=== PATIENT | female | born 1955 | race Caucasian/White ===

== ENCOUNTER 2018-10-19 09:30 | Inpatient (IN) ==
--- NOTE | 2018-10-08 16:19 | PAT Medication Instructions ---
Medication Instructions Date of Service October 08, 2018 Home Medications acetaminophen [Tylenol 8 Hour] 1,300 mg PO Q12H PRN aspirin [Aspir-81] 81 mg PO QAM bupropion HCl [Wellbutrin XL] 100 mg PO TID diclofenac sodium [Voltaren] 2 g TOPICAL TID PRN furosemide 20 mg PO QAM gabapentin [Neurontin] 100 mg PO BID gabapentin [Neurontin] 300 mg PO HS lorazepam [Ativan] 0.5 mg PO UD PRN losartan 25 mg PO QAM metformin 500 mg PO TID metoprolol succinate 25 mg PO QAM multivitamin 1 tab PO QAM naproxen sodium [Aleve] 220 mg PO QPM PRN oxycodone 10 mg PO QID PRN polyethylene glycol 3350 [Miralax] 17 g PO DAILY PRN ranitidine HCl [Zantac] 150 mg PO BID turmeric 400 mg PO QAM ASK your surgeon for instructions diclofenac sodium [Voltaren] 2 g TOPICAL TID PRN naproxen sodium [Aleve] 220 mg PO QPM PRN STOP taking 2 weeks before surgery turmeric 400 mg PO QAM DO NOT take the morning of surgery furosemide 20 mg PO QAM losartan 25 mg PO QAM metformin 500 mg PO TID multivitamin 1 tab PO QAM polyethylene glycol 3350 [Miralax] 17 g PO DAILY PRN Take morning of surgery With a small sip of water, OTHERWISE NOTHING TO EAT OR DRINK AFTER MIDNIGHT: acetaminophen [Tylenol 8 Hour] 1,300 mg PO Q12H PRN (if needed, may be taken up to four hours before surgery) aspirin [Aspir-81] 81 mg PO QAM bupropion HCl [Wellbutrin XL] 100 mg PO TID gabapentin [Neurontin] 100 mg PO BID lorazepam [Ativan] 0.5 mg PO UD PRN (if needed) metoprolol succinate 25 mg PO QAM oxycodone 10 mg PO QID PRN (if needed, may be taken up to four hours before surgery) ranitidine HCl [Zantac] 150 mg PO BID Take evening before surgery acetaminophen [Tylenol 8 Hour] 1,300 mg PO Q12H PRN (if needed) bupropion HCl [Wellbutrin XL] 100 mg PO TID gabapentin [Neurontin] 100 mg PO BID gabapentin [Neurontin] 300 mg PO HS lorazepam [Ativan] 0.5 mg PO UD PRN metformin 500 mg PO TID oxycodone 10 mg PO QID PRN (if needed) polyethylene glycol 3350 [Miralax] 17 g PO DAILY PRN (if needed) ranitidine HCl [Zantac] 150 mg PO BID Other Notes If you have any questions please call us at [phone] or [phone] or [phone] or [phone]
--- NOTE | 2018-10-09 09:30 | Anesthesiology Consultation ---
Date of Service October 09, 2018 Assessment & Plan (1) Encounter for pre-operative examination: CHECK BSG AM DOS Chart Review Chart Review: Acceptable Risk for Surgery and Patient seen in Pre Admission Testing Teaching & Discussion Instructed NPO after midnight before surgery, except medications with 15 cc of water. Medication instructions provided according to the PAT guidelines. History Surgery Operation Date: 10/19/18 12:05 Proposed Procedures p Right Anterior Total Hip Arthroplasty - Rosendo Solomon DO Height/Weight Height: 5 ft 7 in Weight: 103.3 kg Allergies Allergy/AdvReac Type Severity Reaction Status Date / Time No Known Allergies Allergy Verified 10/05/18 14:21 Medications Home Medications Medication Instructions Recorded Confirmed Last Taken acetaminophen [Tylenol 8 Hour] 1,300 mg PO Q12H PRN 10/05/18 10/05/18 Unknown aspirin [Aspir-81] 81 mg PO QAM 10/05/18 10/05/18 Unknown bupropion HCl [Wellbutrin XL] 100 mg PO TID 10/05/18 10/05/18 Unknown diclofenac sodium [Voltaren] 2 g TOPICAL TID PRN 10/05/18 10/05/18 Unknown furosemide 20 mg PO QAM 10/05/18 10/05/18 Unknown gabapentin [Neurontin] 100 mg PO BID 10/05/18 10/05/18 Unknown gabapentin [Neurontin] 300 mg PO HS 10/05/18 10/05/18 Unknown lorazepam [Ativan] 0.5 mg PO UD PRN 10/05/18 10/05/18 Unknown losartan 25 mg PO QAM 10/05/18 10/05/18 Unknown metformin 500 mg PO TID 10/05/18 10/05/18 Unknown metoprolol succinate 25 mg PO QAM 10/05/18 10/05/18 Unknown multivitamin 1 tab PO QAM 10/05/18 10/05/18 Unknown naproxen sodium [Aleve] 220 mg PO QPM PRN 10/05/18 10/05/18 Unknown oxycodone 10 mg PO QID PRN 10/05/18 10/05/18 Unknown polyethylene glycol 3350 [Miralax] 17 g PO DAILY PRN 10/05/18 10/05/18 Unknown ranitidine HCl [Zantac] 150 mg PO BID 10/05/18 10/05/18 Unknown turmeric 400 mg PO QAM 10/05/18 10/05/18 Unknown Past Medical History Medical History Anxiety Chronic back pain Degenerative disc disease Depression Diabetes mellitus, type 2 GERD (gastroesophageal reflux disease) Hypertension Obesity Osteoarthritis LIMITED ROM NECK TO LEFT Post traumatic stress disorder Thyroid nodule UNDER OBSERVATION Q 6 MONTHS Exercise / Class Metabolic Activity III < 4 Walking/Shop/Light housework (Limited by hip pain currently, using wheeled walker, could not do stairs now, but prior to severe hip pain denies S OB/CP with 1 FOS) Past Family History Family History Father Family history of reaction to anesthesia COMBATITIVE Family history of diabetes mellitus Sister Family history of diabetes mellitus Mother Family hx colonic polyps Past Surgical History Surgical History History of section SPINAL ANESTHESIA S/P epidural steroid injection Past Anesthesia History No Hx of Anesthesia Complications and No Family Hx of Anesthesia Complications GA naive. History of PONV No Hx of PONV and No Hx of Motion Sickness Social History Smoking Status: Former smoker Do You Dip or Chew Tobacco: No Smoking End Date: QUIT 08/2018 Hx Alcohol Use: No Hx Substance Use: No Review of Systems Pt denies any recent chest pain, shortness of breath, palpitations, cough, fever or URI. Physical Exam Vital Signs BP: 112/74 P: 97bpm SPO2: 96% RA T: 98.5 F R: 16 Constitutional + obese ENMT Mouth: + dentures (partial upper); no dental restorations, no chipped teeth and no loose teeth Thyromental Distance: > or= 3.5 Finger Breadths (4) Mallampati Class: II Neck normal visual inspection and + limited neck extension (mildly) Respiratory normal respiratory effort Auscultation: lungs clear to auscultation bilaterally Cardiovascular Rate/Rhythm: regular rate and regular rhythm Heart Sounds: no murmur Vessels: no carotid bruit Extremities: no edema Testing Laboratory Results 10/09/18 09:55 10/09/18 09:55 PT 9.6 Seconds (9.0-12.0) 10/09/18 09:55 INR 0.9 (0.9-1.1) 10/09/18 09:55 APTT 24.4 Seconds (21.0-31.0) 10/09/18 09:55 Blood Type A Positive 10/09/18 09:55 Antibody Screen NEGATIVE 10/09/18 09:55 Electrocardiogram Date: 10/09/18 Findings: + NSR @ (99) Chest X-Ray Date: 10/09/18 Findings: + NAD
--- NOTE | 2018-10-09 10:44 | XRay Report ---
TWO VIEW CHEST CLINICAL HISTORY: Preoperative examination. FINDINGS: PA and lateral chest radiographs are obtained. No prior studies are available for compariso n at the time of dictation. The cardiomediastinal silhouette is unremarkable. The lungs and pleura l spaces are clear. There is no pneumothorax. The skeletal structures are osteopenic. The bony thorax appears intact. Degenerative change is seen throughout the thoracic spine. IMPRESSION: No active disease in the chest. Electronically signed by: Ino Brandt M.D. 10/09/2018 10:43 AM
[2018-10-09 10:55] LABS: Basophils # (auto) 0.01 K/uL (0-0.2); Basophils % (auto) 0.2 %; Eosinophils # (auto) 0.06 K/uL (0-0.5); Hematocrit (blood only) 36.3 % (37-47); Immature Granulocytes # (auto) 0.01 K/uL (0.00-0.02); Immature Granulocytes % (auto) 0.2 %; Lymphocytes # (auto) 2.83 K/uL (1.2-3.4); Lymphocytes % (auto) 44.8 %; Mean Corpuscular Hgb Conc 33.1 g/dL (32-36); Mean Corpuscular Volume 97.3 fL (80-100); Mean Platelet Volume 9.9 fL (7.4-10.4); Monocytes # (auto) 0.52 K/uL (0.11-0.59); Monocytes % (auto) 8.2 %; Neutrophils # (auto) 2.88 K/uL (1.4-6.5); Neutrophils % (auto) 45.6 %; Platelet Count 368 K/uL (130-400); RDW Coefficient of Variation 12.6 % (11.5-14.5); RDW Standard Deviation 44.6 fL (36.4-46.3); Red Blood Count 3.73 M/uL (4.2-5.4); White Blood Count 6.31 K/uL (4.8-10.8)
[2018-10-09 11:02] LABS: BUN Creatinine Ratio 13.9 (10-20); Calcium 9.8 mg/dl (8.5-10.1); Est GFR (African American) 70.4; Est GFR (Non-African American) 60.8; Potassium 4.4 mmol/L (3.5-5.1)
[2018-10-09 11:05] LABS: INR 0.9 (0.9-1.1); Partial Thromboplastin Ratio 0.9; Partial Thromboplastin Time 24.4 Seconds (21.0-31.0); Prothrombin Time 9.6 Seconds (9.0-12.0)
--- NOTE | 2018-10-18 16:37 | History & Physical Report ---
Date of Service October 18, 2018 Assessment & Plan (1) Osteoarthritis of right hip: We will proceed with a right anterior total hip arthroplasty. Postoperatively she will be started on aspirin for DVT prophylaxis. She will stay overnight at the hospital for postoperative medical management. She plans to use energy physical therapy upon discharge. Present on Admission?: Yes History of Present Illness Chief Complaint: Primary osteoarthritis of the right hip Primary Care Provider: Leydi Alford Tyler Woodward is a pleasant 63-year-old female who is been complaining of chronic increasing right hip and groin pain. X-rays and clinical examination have been diagnostic for primary osteoarthritis of the right hip. After failing conservative treatment, she has elected to proceed with a right anterior total hip arthroplasty. Allergies Allergy/AdvReac Type Severity Reaction Status Date / Time No Known Allergies Allergy Verified 10/05/18 14:21 Home Medications Home Medications Medication Instructions Recorded Confirmed Type acetaminophen [Tylenol 8 Hour] 1,300 mg PO Q12H PRN 10/05/18 10/05/18 History aspirin [Aspir-81] 81 mg PO QAM 10/05/18 10/05/18 History bupropion HCl [Wellbutrin XL] 100 mg PO TID 10/05/18 10/05/18 History diclofenac sodium [Voltaren] 2 g TOPICAL TID PRN 10/05/18 10/05/18 History furosemide 20 mg PO QAM 10/05/18 10/05/18 History gabapentin [Neurontin] 100 mg PO BID 10/05/18 10/05/18 History gabapentin [Neurontin] 300 mg PO HS 10/05/18 10/05/18 History lorazepam [Ativan] 0.5 mg PO UD PRN 10/05/18 10/05/18 History losartan 25 mg PO QAM 10/05/18 10/05/18 History metformin 500 mg PO TID 10/05/18 10/05/18 History metoprolol succinate 25 mg PO QAM 10/05/18 10/05/18 History multivitamin 1 tab PO QAM 10/05/18 10/05/18 History naproxen sodium [Aleve] 220 mg PO QPM PRN 10/05/18 10/05/18 History oxycodone 10 mg PO QID PRN 10/05/18 10/05/18 History polyethylene glycol 3350 [Miralax] 17 g PO DAILY PRN 10/05/18 10/05/18 History ranitidine HCl [Zantac] 150 mg PO BID 10/05/18 10/05/18 History turmeric 400 mg PO QAM 10/05/18 10/05/18 History Past Med/Surg History Medical History Anxiety Chronic back pain Degenerative disc disease Depression Diabetes mellitus, type 2 GERD (gastroesophageal reflux disease) Hypertension Obesity Osteoarthritis LIMITED ROM NECK TO LEFT Post traumatic stress disorder Thyroid nodule UNDER OBSERVATION Q 6 MONTHS Surgical History History of section SPINAL ANESTHESIA S/P epidural steroid injection Family History Father Family history of reaction to anesthesia COMBATITIVE Family history of diabetes mellitus Sister Family history of diabetes mellitus Mother Family hx colonic polyps Social History Preferred Language: Yakut Communication Ability: Effective Dice Person Required: No Beliefs That Will Affect Care: None Current Living Situation: Alone Other Information That Helps Us Care for You: No Feels Safe at Home: Yes Safety Concerns: Feels Safe At This Time Smoking Status: Former smoker Do You Dip or Chew Tobacco: No ; Smoking End Date: QUIT 08/2018 ; Second Hand Exposure: Yes (ON OCC) ; Hx Alcohol Use: No Hx Substance Use: No Review of Systems All systems reviewed & are unremarkable except as noted in HPI & below Physical Exam Constitutional: WD/WN, vitals as above Eyes: PERRL, conjunctivae normal, anicteric sclerae ENMT: external ear and nose normal, oropharynx normal Neck: trachea midline, no thyromegaly Respiratory: normal respiratory effort Cardiovascular: RRR, no murmur, no edema Gastrointestinal (Abdomen): normal bowel sounds, soft, nontender, no hepatosplenomegaly Musculoskeletal: Physical examination of the right hip reveals decreased range of motion with flexion, internal and external rotation. There is significant groin pain with forced internal rotation of the hip his leg lengths are essentially equal. Psychiatric: A+Ox3, euthymic affect Results & Data Diagnostic Findings Radiographs of the right hip and pelvis demonstrate advanced osteoarthritis with joint space narrowing osteophyte formation and [id number] articulation.
[~2018-10-19 09:30] MED LIST: ACETAMINOPHEN 500 MG TAB PO SCH; BUPIVACAINE 0.5 % 5 MG/1 ML PF 10ML VIAL ONE; CEFAZOLIN 2000MG 2,000 MG/15 ML SYR IV SCH; FAMOTIDINE 20 MG TAB PO SCH; GABAPENTIN 600 MG DOSE PO SCH; LR 500ML BOLUS, THEN 15ML/HR IV SCH; LR 60ML/HR IV SCH; ROPIVACAINE 0.5% HCL/PF 150 MG, BUPIVACAINE 0.5% MPF 30 ML, EPINEPHrine 30MG/30ML (OR U... INSTIL SCH; TRANEXAMIC ACID 1,000 MG **IV Intra-op IV SCH; TRANEXAMIC ACID 1,000 MG **IV Pre-op IV SCH
--- NOTE | 2018-10-19 10:23 | History & Physical Bridge Note ---
Date of Service October 19, 2018 History & Physical Bridge Note I have examined the patient, reviewed the History & Physical and in the interval since the performance of the History & Physical I have noted the following changes of clinical significance: no changes noted
[2018-10-19] MEDS ORDERED: MIDAZOLAM HCL 1 MG/ML 2ML VIAL ONE ×3 (10:26→11:58)
[2018-10-19] MEDS ORDERED: fentaNYL citrate 100 MCG/2 ML VIAL ONE ×2 (10:26→12:17)
[2018-10-19] MEDS ORDERED: LIDOCAINE HCL 2% 2 ML VIAL/AMP(20MG/ML) INFIL ONE (10:31)
[2018-10-19] MEDS ORDERED: PROPOFOL IV EMULSION 10 MG/ML 20 ML VIAL IV ONE ×4 (10:31→13:38)
[2018-10-19] MEDS ORDERED: ORTHO JOINT ANESTHETIC ONE (11:13)
[2018-10-19] MEDS ORDERED: fentaNYL citrate 100 MCG/2 ML VIAL IV PRN (12:39)
[2018-10-19] MEDS ORDERED: ATROPINE SULFATE 0.1 MG/ML 10ML SYR IV PRN (12:39)
[2018-10-19] MEDS ORDERED: ONDANSETRON INJ 2 MG/ML 2 ML VIAL IV PRN ×2 (12:39→15:17)
[2018-10-19] MEDS ORDERED: ePHEDrine sulfate 50 MG/ML AMP IV PRN (12:39)
[2018-10-19] MEDS ORDERED: PHENYLEPHRINE HCL 10 MG/ML VIAL ONE (13:27)
--- NOTE | 2018-10-19 13:39 | Operative Report ---
Post Operative Report Pre & Post Diagnosis Operation Date: 10/19/18 11:40 Pre-Op Diagnosis: RIGHT HIP DEGENERATIVE JOINT DISEASE Post-Op Diagnosis: RIGHT HIP DEGENERATIVE JOINT DISEASE Procedure Operation Date: 10/19/18 11:40 Actual Procedures p Right Anterior Total Hip Arthroplasty(Right) - Rosendo Solomon DO Surgeon Rosendo Solomon DO Medical Language Specialist Rosendo Douglas PAC Estimated Blood Loss 200 Findings Consistent with Post-Op Diagnosis Specimens Right femoral head Complications none Disposition Disposition: Recovery Room Indications Crissy is a pleasant 63-year-old female who presented my office with complaints of severe right hip pain. X-rays and clinical examination were diagnostic for primary osteoarthritis of the right hip. After failing conservative treatment, she elected proceed with a right anterior total hip arthroplasty. Description of Procedure Implants used Biomet Taperloc total hip arthroplasty system with a size 11 standard offset Taperloc stem, a 50 mm G7 cup with a 25mm screw, an E1 polyethylene liner, a 36 mm ceramic head with a +3 neck. Patient arrived at the hospital for the above procedure. They were seen in the preoperative holding area and the operative extremity was identified and signed. They were given a spinal anesthetic. They were given a preoperative antibiotic and TXA. They were taken back To the operating room and laid on the table in the supine position. The leg was brought out through a Puristst leg positioner. The hip was then prepped and draped in sterile fashion. A timeout was done and the patient in upper extremities properly identified. An anterior approach was used. Dissection was taken down through the fascia and the tensor muscle belly was retracted laterally and the rectus was retracted medially. The circumflex vessels were identified and ligated. The capsule was then incised and tagged for later repair. The femoral neck was then cut and the femoral head was removed. The acetabulum was exposed. Time was spent doing a complete circumferential labral release. Sequential reaming of the acetabulum up to a size 49 reamer was done. Final reamings were done under fluoroscopy to ensure appropriate version. A Biomet 50 mm G7 cup was then impacted into place. A single 25 mm screw was placed. The E1 polyethylene liner was then snapped into place. Surrounding soft tissues were then injected with 100 cc of an orthopedic pain control cocktail. The proximal femur was then exposed. Sequential broaching up to a size 11 broach was done. Off that broach a size 36 head with a +3 neck was trialed. The hip was reduced and fluoroscopic images showed anatomic alignment of the implants in acceptable length. The broach was removed. The final size 11 standard offset Taperloc stem was then impacted into place. A ceramic 36 mm head with a +3 neck was then impacted into place in the hip was reduced. Final fluoroscopic images showed anatomic reduction of the hip. The capsule was then closed with #1 Vicryl suture. A dilute betadyne lavage was then done for 3 minutes. The joint was then irrigated with normal saline solution. The fascia was closed with #1 PDS suture. Skin was closed with 2-0 Vicryl, allyson, and a Mago VAC dressing. The patient was then transferred to a hospital bed and taken to the post anesthesia care unit in stable condition. They tolerated the procedure well. I attest to the content of the Intraoperative Record and any orders documented therein. Any exceptions are noted below.
--- NOTE | 2018-10-19 14:19 | Fluoroscopy Report ---
FL hip RT 1V CLINICAL HISTORY: RIGHT ANTERIOR TOTAL HIP COMPARISON STUDY: None. FLUOROSCOPY TIME: 22 seconds. FINDINGS: 2 fluoroscopic spot images of the right hip demonstrate a right total hip arthroplasty. The hardware appears intact. No fracture or dislocation. IMPRESSION: Fluoroscopy provided for right total hip arthroplasty. Electronically signed by: Claude Madera M.D. 10/19/2018 2:18 PM
--- NOTE | 2018-10-19 14:34 | Anesthesiology Progress Note ---
Date of Service October 19, 2018 Anesthesia Post Procedure Vital Signs Vital Signs: Temp Pulse Pulse Resp BP BP Pulse Ox 10/19/18 14:25 91 H 13 132/78 98 10/19/18 14:15 93 H 15 122/75 99 10/19/18 14:05 93 H 19 111/75 99 10/19/18 13:59 36.2 C L 96 H 20 113/65 100 10/19/18 10:10 37 C 108 H 20 149/96 H 96 Pain Intensity Right Hip: Pain Intensity: 3 Transfer of Care Handoff Completed per policy Notes Mental Status: alert / awake / arousable and participated in evaluation Nausea / Vomiting: adequately controlled Pain: adequately controlled Airway Patency, RR, SpO2: stable & adequate BP & HR: stable & adequate Hydration State: stable & adequate Neuraxial Anesthesia: was administered and sensory block is resolving Anesthetic Complications: no major complications apparent and Pt Satisfied with anesthetic care
--- NOTE | 2018-10-19 14:40 | XRay Report ---
XR hip 1V RT w pelvis CLINICAL HISTORY: 63 years-old Female presenting with status post right hip arthroplasty. TECHNIQUE: Single frontal view of the pelvis and crosstable lateral view of the right hip were obtain ed. COMPARISON: 10/01/2018. FINDINGS: Postsurgical changes of total right hip arthroplasty new from prior. Redemonstration of severe degene rative changes with joint space loss at the left hip. Bony pelvis otherwise intact. No periprosthetic fracture or lucency. No malalignment. Overlying skin allyson. Soft tissue emphysema in the region of the operative bed. IMPRESSION: Expected postsurgical changes status post total right hip arthroplasty. Electronically signed by: Demetrius Woods M.D. 10/19/2018 2:38 PM
[2018-10-19] MEDS ORDERED: PHARMACY GLYCEMIC MGMT CONSULT PRN (14:49)
[2018-10-19] MEDS ORDERED: GLUCOSE 10 TABS/TUBE PO PRN (15:00)
[2018-10-19] MEDS ORDERED: CARBOHYDRATES FOR HYPOGLYCEMIA PO PRN (15:00)
[2018-10-19] MEDS ORDERED: DEXTROSE 50% 50 ML SYRINGE IV PRN (15:00)
[2018-10-19] MEDS ORDERED: GLUCAGON FOR INJ 1 MG VIAL IM PRN (15:00)
[2018-10-19] MEDS ORDERED: GLUCOSE 40% GEL 15 GM TUBE PO PRN (15:00)
[2018-10-19] MEDS ORDERED: METOCLOPRAMIDE HCL INJ 5 MG/ML 2 ML VIAL IV PRN (15:17)
[2018-10-19] MEDS ORDERED: BISACODYL 10 MG SUPP PR PRN (15:17)
[2018-10-19] MEDS ORDERED: NALOXONE HCL 0.4 MG/1 ML VIAL/CARP IV PRN (15:17)
[2018-10-19] MEDS ORDERED: HYDROmorphone INJ 0.5 MG/0.5 ML SYR IV PRN (15:17)
[2018-10-19] MEDS ORDERED: MAGNESIUM HYDROXIDE SUSP 30 ML UDC PO PRN (15:17)
--- NOTE | 2018-10-19 15:17 | Pharmacy Report ---
Glycemic Control Consultation - Date of Service October 19, 2018 - Scope Scope: Glycemic Pharmacist consulted by Rosendo Douglas on 10/19 for glycemic control and to write orders per [facility] inpatient glycemic control protocol - Objective Weight: 103.6 kg Accuchecks BSG (last 24hrs): 10/19/18 10/19/18 09:54 14:07 POC Glucose 128 H 110 H - Recent Pertinent Medications Outpatient Anti-diabetic Regimen: * metformin 500 mg tid * A1c = ordered for 8 AM Risk Factors for Insulin Resistance: * Steroids: topical dex in ortho * Recent Surgery: POD0 * Diet: T2DM - Assessment & Plan Assessment & Plan: ASSESSMENT: * 63 year old female now s/p right hip arthroplasty. PMHx significant for obesity, PTSD, GERD, htn, depression, type 2 diabetes. Managed only on metformin at home, unknown A1C * BSG postop at 110 mg/dL, patient did receive topical dexamethasone - will utilize basal/bolus dosing postop PLAN FOR INPATIENT GLYCEMIC CONTROL: * Holding outpatient oral diabetes medications * Basal insulin * Lantus HS per scale * Lantus 0 units if <160, 10 units if 160 or greater * Bolus insulin * NovoLog per scale ACHS or Q6hrs while NPO * Goal Range: Low 110 mg/dL - High 140 mg/dL * Correction Factor: 25 mg/dL/unit * Nutritional / Prandial insulin per carb ratio of 1 unit per 8 grams CHO consumed * Please note that the plan above was derived based on current level of insulin resistance and hospital stress. These recommendations are appropriate for inpatient admission only. Plan of care upon discharge will need to be reassessed to avoid potential outpatient hypo/hyperglycemia. Thank you.
[2018-10-19] MEDS: KETOROLAC 30 MG/ML VIAL IV SCH ×2 (16:11→22:08)
[2018-10-19] MEDS: ACETAMINOPHEN 500 MG TAB PO SCH ×2 (16:12→22:08)
[2018-10-19] MEDS: buPROPion HCl 100 MG TABLET PO SCH ×2 (16:12→20:52)
[2018-10-19] MEDS: SODIUM CHLORIDE 0.9% 1000ML 1,000 ML IV SCH (16:18)
[2018-10-19] MEDS: GABAPENTIN 100 MG CAP PO SCH (17:41)
[2018-10-19] MEDS: INSULIN ASPART 100 UNITS/ML 3 ML PEN SC SCH ×2 (17:42→21:58)
[2018-10-19] MEDS: SENNA 8.6 MG TAB PO SCH (20:52)
[2018-10-19] MEDS: OXYCODONE HCL IR 5 MG TAB (IMMEDIATE RELEASE) PO PRN (20:52)
[2018-10-19] MEDS: DOCUSATE SODIUM 100 MG CAP PO SCH (20:52)
[2018-10-19] MEDS: GABAPENTIN 300 MG CAP PO SCH (20:52)
[2018-10-19] MEDS: ASPIRIN 81 MG ECTAB PO SCH (20:52)
[2018-10-19] MEDS: CEFAZOLIN 2000MG 2,000 MG/15 ML SYR IV SCH (20:56)
[2018-10-19] MEDS ORDERED: LANTUS PER UNIT CHARGE SQ SCH (21:00)
[2018-10-19] MEDS ORDERED: METFORMIN HCL 500 MG TAB PO SCH (21:00)
[2018-10-19] MEDS ORDERED: GABAPENTIN 100 MG CAP PO SCH (21:00)
[2018-10-20] MEDS ORDERED: INSULIN ASPART 100 UNITS/ML 3 ML PEN SC SCH
[2018-10-20] MEDS: SODIUM CHLORIDE 0.9% 1000ML 1,000 ML IV SCH (03:15)
[2018-10-20] MEDS: CEFAZOLIN 2000MG 2,000 MG/15 ML SYR IV SCH (04:56)
[2018-10-20] MEDS: KETOROLAC 30 MG/ML VIAL IV SCH ×4 (04:56→20:51)
[2018-10-20] MEDS: ACETAMINOPHEN 500 MG TAB PO SCH ×3 (05:33→20:51)
[2018-10-20 06:23] LABS: Hematocrit (blood only) 29.1 % (37-47); Hemoglobin 9.7 g/dL (12.0-16.0); Immature Granulocytes # (auto) 0.01 K/uL (0.00-0.02); Immature Granulocytes % (auto) 0.1 %; Lymphocytes # (auto) 1.48 K/uL (1.2-3.4); Lymphocytes % (auto) 15.9 %; Mean Corpuscular Hgb Conc 33.3 g/dL (32-36); Mean Corpuscular Volume 95.4 fL (80-100); Mean Platelet Volume 9.4 fL (7.4-10.4); Monocytes % (auto) 8.6 %; Neutrophils # (auto) 6.99 K/uL (1.4-6.5); Neutrophils % (auto) 75.4 %; Platelet Count 256 K/uL (130-400); RDW Coefficient of Variation 12.6 % (11.5-14.5); RDW Standard Deviation 43.3 fL (36.4-46.3); Red Blood Count 3.05 M/uL (4.2-5.4); White Blood Count 9.28 K/uL (4.8-10.8)
[2018-10-20 06:55] LABS: Estimated Average Glucose 128 mg/dl; Hemoglobin A1C 6.1 % (4.5-5.6)
[2018-10-20 07:03] LABS: BUN Creatinine Ratio 13.5 (10-20); Calcium 8.6 mg/dl (8.5-10.1); Creatinine Clr Calc Pharmacy 74.6 ml/min; Est GFR (African American) 72.2; Est GFR (Non-African American) 62.3; Potassium 4.1 mmol/L (3.5-5.1)
[2018-10-20] MEDS: METFORMIN HCL 500 MG TAB PO SCH ×3 (08:46→17:38)
[2018-10-20] MEDS: OXYCODONE HCL IR 5 MG TAB (IMMEDIATE RELEASE) PO PRN ×3 (08:46→18:52)
[2018-10-20] MEDS: FUROSEMIDE 20 MG TAB PO SCH (08:47)
[2018-10-20] MEDS: MULTIVITAMIN TAB PO SCH (08:47)
[2018-10-20] MEDS: GABAPENTIN 100 MG CAP PO SCH ×2 (08:47→17:38)
[2018-10-20] MEDS: DOCUSATE SODIUM 100 MG CAP PO SCH ×2 (08:47→20:51)
[2018-10-20] MEDS: METOPROLOL SUCC 25MG EXT REL TAB PO SCH (08:48)
[2018-10-20] MEDS: INSULIN ASPART 100 UNITS/ML 3 ML PEN SC SCH ×4 (08:48→22:22)
[2018-10-20] MEDS: LOSARTAN POTASSIUM 25 MG TAB PO SCH (08:48)
[2018-10-20] MEDS: ASPIRIN 81 MG ECTAB PO SCH ×2 (08:48→20:51)
[2018-10-20] MEDS: buPROPion HCl 100 MG TABLET PO SCH ×3 (08:48→20:51)
[2018-10-20] MEDS ORDERED: MULTIVITAMIN TAB PO SCH (09:00)
--- NOTE | 2018-10-20 09:12 | Orthopedic Progress Note ---
Date of Service October 20, 2018 Assessment & Plan (1) Osteoarthritis of right hip: Overall she is doing fairly well. She is not having much pain in her right hip. She is on aspirin for DVT prophylaxis. She will be seen by physical therapy today for range of motion and ambulation exercises. We will plan to discharge her to home tomorrow. Present on Admission?: Yes Subjective Crissy was seen and examined at bedside this morning. Overall she is doing fairly well. She has some soreness in her hip but is not too bad. She is been very optimistic since her hip does feel better when she is walking on it. She has no complaints. Physical Exam Musculoskeletal: On physical examination of the right hip, the dressing is clean and dry. Her leg lengths are equal. She is active dorsiflexion and plantarflexion of her right ankle. Results & Data Vital Signs (Past 12 Hours) Vital Signs Temp Pulse Resp BP Pulse Ox 10/20/18 07:55 37.0 C 84 16 130/80 97 10/20/18 02:01 36.7 C 103 H 16 119/70 93 10/20/18 00:00 36.8 C 98 H 14 126/75 91 Laboratory Results H & H 10/09/18 10/20/18 Range/Units 09:55 05:53 Hgb 12.0 9.7 L (12.0-16.0) g/dL Hct 36.3 L 29.1 L (37-47) % Coagulation 10/09/18 Range/Units 09:55 INR 0.9 (0.9-1.1) Diagnostic Findings Postoperative x-rays of the right hip show the prosthesis to be in anatomic alignment without any evidence of fracture, dislocation, or loosening. PG Care Time/CCT Total # of Minutes Spent Total Time Spent with Patient: Total time spent is greater than 50% in coordination of care (as documented) at patient's floor/unit and/or counseling patient:
--- NOTE | 2018-10-20 11:01 | Pharmacy Report ---
Pharmacy Glycemic Short Note 2 - Date of Service October 20, 2018 - Glycemic Short BSG Results (Last 24 hours): 10/19/18 10/19/18 10/19/18 14:07 17:22 21:05 Glucose POC Glucose 110 H 129 H 135 H 10/19/18 10/20/18 10/20/18 23:54 05:53 08:27 Glucose 108 H POC Glucose 131 H 114 H OUTPATIENT ANTIDIABETIC REGIMEN: * metformin 500 mg tid * A1c = 6.1% on 10/20 ASSESSMENT: * 63 year old female now s/p right hip arthroplasty. PMHx significant for obesity, PTSD, GERD, htn, depression, type 2 diabetes. Managed only on metformin at home, with excellent control per A1c * Oral agents are not recommended for inpatient use d/t drug interactions, changing PO intake, and difficulty titrating for acute hyper/hypoglycemia. ADA recommends re-initiating outpatient oral agents 1-2 days prior to d ischarge if/when appropriate if they were held on admission. * Held metformin POD#0 and utilized SQ basal bolus insulin regimen which is the recommended regimen for inpatient glycemic control. * Will initiate weight based insulin dosing for insulin baldemar patient and titrate based on BSG trends. * basal insulin was not needed as BSG never >160 mg/dl * Pt tolerating PO, Scr WNL. Anticipate DC in the next 24hr. Will stop insulin and resume outpatient regimen in prep for dc PLAN FOR INPATIENT GLYCEMIC CONTROL: * Resume oral diabetes medications * metformin 500mg PO TIDM * Basal insulin * Not needed * Bolus insulin * NovoLog per scale ACHS or Q6hrs while NPO * Goal Range: Low 110 mg/dL - High 140 mg/dL * Correction Factor: 30 mg/dL/unit * Nutritional / Prandial insulin per carb ratio of 1 unit per -- grams CHO consumed PLAN FOR DISCHARGE: * Resume metformin. no changes needed based on A1c
[2018-10-20] MEDS: GABAPENTIN 300 MG CAP PO SCH (20:51)
[2018-10-20] MEDS: SENNA 8.6 MG TAB PO SCH (20:51)
[2018-10-21] MEDS: KETOROLAC 30 MG/ML VIAL IV SCH ×2 (04:02→10:46)
[2018-10-21] MEDS: ACETAMINOPHEN 500 MG TAB PO SCH (06:08)
--- NOTE | 2018-10-21 07:18 | Orthopedic Progress Note ---
Date of Service October 21, 2018 Assessment & Plan (1) Osteoarthritis of right hip: Overall she is doing very well. She not having too much pain in the right hip. She was able to ambulate well yesterday with physical therapy. She will be seen by physical therapy again this morning. She can be discharged home later today. She will get energy physical therapy at home. She will follow-up with orthopedics in 2 weeks. Present on Admission?: Yes Yamileth Woodward was seen and examined at bedside this morning. Overall she is doing fairly well. She is not having too much pain in the right hip. She is able to ambulate well yesterday with physical therapy. She has no complaints. Physical Exam Musculoskeletal: On physical examination of the right hip, the Mago VAC dressings to suction. Her leg lengths are equal. She is neurovascularly intact. Results & Data Vital Signs (Past 12 Hours) Vital Signs Temp Pulse Resp BP Pulse Ox 10/21/18 06:34 36.7 C 88 16 144/73 H 95 10/20/18 23:37 36.8 C 100 H 16 128/77 94 PG Care Time/CCT Total # of Minutes Spent Total Time Spent with Patient: Total time spent is greater than 50% in coordination of care (as documented) at patient's floor/unit and/or counseling patient:
--- NOTE | 2018-10-21 07:19 | Discharge Summary ---
Date of Service October 21, 2018 Admission HPI Per Admitting Provider Crissy is a pleasant 63-year-old female who is been complaining of chronic increasing right hip and groin pain. X-rays and clinical examination have been diagnostic for primary osteoarthritis of the right hip. After failing conservative treatment, she has elected to proceed with a right anterior total hip arthroplasty. Principal Diagnosis Right total hip arthroplasty Discharge Data Allergies Allergy/AdvReac Type Severity Reaction Status Date / Time No Known Allergies Allergy Verified 10/19/18 10:04 Consultations 10/20/18 08:00 Consult Case Management - Discharge Planning Routine Procedures Performed Operation Date: 10/19/18 11:40 Actual Procedures p Right Anterior Total Hip Arthroplasty(Right) - Rosendo Solomon DO Ordered Studies 10/19/18 11:40 FL fluoroscopy <1hr Routine FL hip RT 1V Routine Hospital Course (1) Osteoarthritis of right hip: On October 19, 2018 Crissy arrived at [facility] and underwent a right anterior total hip arthroplasty without complication. She had a spinal anesthetic. Postoperatively she was started on aspirin for DVT prophylaxis and discharged to general orthopedic floors. Her hospital course was uneventful. On postop day #1 her H&H was stable and her pain was well controlled. She was able to ambulate well with physical therapy. On postop day #2 she continued to do well. She was seen again by therapy. She was then discharged home. She will get [facility] at home. She will follow-up with orthopedics in 2 weeks. Total Time Total Time Spent Total Time Spent (In Minutes): 20 Discharge Plan Discharge Items Patient Disposition: Home - Home Health Services Reason For Visit: RIGHT HIP DEGENERATIVE JOINT DISEASE Discharge Diagnosis: Right total hip arthroplasty Discharge Goals: Decrease discomfort and Improve function Activity: Per 'Additional Instructions' section Non-emergency contact: Surgeon Call non-emergency contact if: your wound has increased redness and your wound has increased drainage Follow-up/Referrals: Leydi Scott CRNP [Primary Care Provider] - Diet: Carb Consistent or DM2 Addtl Provider Instructions: Activity and Therapy Recommendations: * If you are using [facility] then therapy will be provided at your home until they feel you have accomplished all of your goals. * If you are using [facility] then Physical Therapy will be provided until they feel you are ready to start Outpatient Physical Therapy. * If you are not using home therapy then Outpatient Physical Therapy should start about 3-5 days from your day of surgery. Therapy will last about 6-10 weeks * You were shown a series of exercises in the hospital. Do these exercises three times each day including the exercises you were shown in physical therapy. * Get up and walk several times each day.~ For the first four weeks, try not to stand or walk for more than one hour at a time. If you do stand or walk for more than one hour, you will not hurt anything, but your leg will likely swell.~~ * As you feel comfortable, you may change from the walker or crutches to a cane and~then to independent walking. Medications: * Narcotic You will likely be sent home from the hospital with a prescription for the narcotic pain medication that worked best throughout your stay. * Aspirin Most patients will be required to take Aspirin 81mg twice a day for 6 weeks after surgery. This is obtained [id number] and a prescription is not necessary. * Other medications may be prescribed for specific circumstances. If you have any questions, please call the office at . * Resume previous home medications unless otherwise instructed TEDs/Elastic Stockings: The white elastic stockings help limit swelling and prevent blood clots from forming in your legs. The more you wear them, the more they work. Wear them for six weeks. Dressing Care: You will likely have a purple VAC dressing after surgery. This dressing will keep the incision dry and promote early healing. After about 7 days the batteries will wear out and the VAC will lose suction. Simply remove the dressing at that time and throw everything away, including the small suction machine. Then, you may leave the allyson open to air or cover them with a dry dressing so they do not rub on your pants. The allyson will be removed at your 2 week follow-up appointment. Showering: You may shower immediately with the purple VAC dressing. Let the shower spray hit your opposite side and slowly pat the plastic dry. Do not soak the dressing. After the dressing is removed you may shower normally with the allyson exposed. Let soapy water run over the allyson and pat them dry. Things To Watch For: * Drainage from the incision site that occurs more than one week after your surgery. * Increased redness at the incision site. * Fever above 102 degrees Fahrenheit. * Unusual chest pain or shortness of breath. * Call [facility] at with any of the above problems Follow-Up Visit: Follow-up with Dr. Solomon 2-3 weeks after your day of surgery. An appointment was probably scheduled when you signed-up for surgery in the office. If you have any questions call Office Instructions: More detailed instructions as well as Frequently Asked Questions were provided in a folder by our office when you signed-up for surgery. Please review these instructions when you get home. If you have any further questions or concerns, please feel free to call the office at [phone] Prescriptions: Continued metformin 500 mg Tablet 500 mg PO TID RF: 0 ranitidine HCl [Zantac] 150 mg Tablet 150 mg PO BID RF: 0 furosemide 20 mg Tablet 20 mg PO QAM RF: 0 lorazepam [Ativan] 0.5 mg Tablet 0.5 mg PO UD PRN (Reason: Anxiety) RF: 0 losartan 25 mg Tablet 25 mg PO QAM RF: 0 gabapentin [Neurontin] 300 mg Capsule 300 mg PO HS RF: 0 gabapentin [Neurontin] 100 mg Capsule 100 mg PO BID RF: 0 metoprolol succinate 25 mg Tablet Extended Release 24 Hr 25 mg PO QAM RF: 0 bupropion HCl [Wellbutrin XL] 150 mg Tablet Extended Release 24 Hr 100 mg PO TID RF: 0 acetaminophen [Tylenol 8 Hour] 650 mg Tablet Extended Release 1,300 mg PO Q12H PRN (Reason: Pain) RF: 0 oxycodone 10 mg Tablet 10 mg PO QID PRN (Reason: Pain) RF: 0 naproxen sodium [Aleve] 220 mg Capsule 220 mg PO QPM PRN (Reason: Pain) RF: 0 turmeric 400 mg Capsule 400 mg PO QAM RF: 0 diclofenac sodium [Voltaren] 1 % Gel 2 g TOPICAL TID PRN (Reason: Pain) RF: 0 multivitamin Tablet 1 tab PO QAM RF: 0 polyethylene glycol 3350 [Miralax] 17 gram Powder In Packet 17 g PO DAILY PRN (Reason: Constipation) RF: 0 Changed aspirin [Aspir-81] 81 mg Tablet,Delayed Release (Dr/Ec) 81 mg PO BID Qty: 0 RF: 0 Stand-Alone Forms: [facility] Discharge Orders: Discharge Order (Routine); Ordered 10/21/18 Ordered By: Rosendo Solomon Admission Data Admit Date/Time: 10/19/18 14:04 Attending Provider: Rosendo Solomon Admit Provider: Rosendo Solomon Primary Care Provider: Leydi Scott Service: Surgical Services
[2018-10-21] MEDS: OXYCODONE HCL IR 5 MG TAB (IMMEDIATE RELEASE) PO PRN (07:21)
[2018-10-21] MEDS: DOCUSATE SODIUM 100 MG CAP PO SCH (07:22)
[2018-10-21] MEDS: MULTIVITAMIN TAB PO SCH (07:24)
[2018-10-21] MEDS: buPROPion HCl 100 MG TABLET PO SCH (07:24)
[2018-10-21] MEDS: METOPROLOL SUCC 25MG EXT REL TAB PO SCH (07:24)
[2018-10-21] MEDS: GABAPENTIN 100 MG CAP PO SCH (07:25)
[2018-10-21] MEDS: METFORMIN HCL 500 MG TAB PO SCH (07:25)
[2018-10-21] MEDS: FUROSEMIDE 20 MG TAB PO SCH (07:25)
[2018-10-21] MEDS: LOSARTAN POTASSIUM 25 MG TAB PO SCH (07:25)
[2018-10-21] MEDS: ASPIRIN 81 MG ECTAB PO SCH (07:25)
[2018-10-21] MEDS: INSULIN ASPART 100 UNITS/ML 3 ML PEN SC SCH (07:36)
== END 2018-10-21 11:17 | disposition home or self-care (01) | DRG 470 ==
LOC: ASU 09:30 → 3E 14:04

== ENCOUNTER 2019-01-18 05:56 | Inpatient (IN) ==
--- NOTE | 2018-12-05 15:06 | Anesthesiology Consultation ---
Date of Service December 05, 2018 Assessment & Plan (1) Encounter for pre-operative examination: - Check BSG AM DOS Chart Review Chart Review: Pending: Refer to Additional Notes / Consult section (pending preop testing (labs)) and Patient seen in Pre Admission Testing Teaching & Discussion Pre-Anesthesia Teaching/Discussion Notes: Instructed NPO after midnight before surgery,except medications with 15 cc of water. Medication instructions provided according to the PAT guidelines. History Surgery Operation Date: 01/25/19 12:30 Proposed Procedures p Left Anterior Total Hip Arthroplasty - Rosendo Solomon DO Height/Weight Height: 5 ft 7 in Weight: 104.4 kg Allergies Allergy/AdvReac Type Severity Reaction Status Date / Time No Known Allergies Allergy Verified 11/30/18 11:06 Medications Home Medications Medication Instructions Recorded Confirmed Last Taken acetaminophen [Tylenol 8 Hour] 1,300 mg PO Q12H PRN 10/05/18 11/30/18 10/19/18 04:00 bupropion HCl [Wellbutrin XL] 100 mg PO TID 10/05/18 11/30/18 10/19/18 08:00 diclofenac sodium [Voltaren] 2 g TOPICAL TID PRN 10/05/18 11/30/18 3 Weeks Ago ~09/28/18 furosemide 20 mg PO QAM 10/05/18 11/30/18 10/18/18 09:00 gabapentin [Neurontin] 100 mg PO BID 10/05/18 11/30/18 10/19/18 05:00 gabapentin [Neurontin] 300 mg PO HS 10/05/18 11/30/18 10/18/18 19:00 lorazepam [Ativan] 0.5 mg PO UD PRN 10/05/18 11/30/18 10/19/18 08:00 losartan 25 mg PO QAM 10/05/18 11/30/18 10/18/18 09:00 metformin 500 mg PO TID 10/05/18 11/30/18 10/18/18 12:00 metoprolol succinate 25 mg PO QAM 10/05/18 11/30/18 10/19/18 08:00 multivitamin 1 tab PO QAM 10/05/18 11/30/18 10/18/18 09:00 oxycodone 10 mg PO QID PRN 10/05/18 11/30/1810/19/19 05:00 polyethylene glycol 3350 [Miralax] 17 g PO DAILY PRN 10/05/18 11/30/18 1 Month Ago ~09/18/18 ranitidine HCl [Zantac] 150 mg PO BID 10/05/18 11/30/18 10/19/18 08:00 aspirin [Aspir-81] 81 mg PO QAM 11/30/18 11/30/18 Unknown Past Medical History Medical History Anxiety Chronic back pain Degenerative disc disease Depression Diabetes mellitus, type 2 NIDDM Fibromyalgia GERD (gastroesophageal reflux disease) controlled Hx of basal cell carcinoma Hypertension Neuropathy legs, feet, hands; 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 Obesity Osteoarthritis Post traumatic stress disorder Thyroid nodule under surveillance Exercise / Class Metabolic Activity III < 4 Walking/Shop/Light housework (walker PRN) Past Family History Family History Father Family history of reaction to anesthesia COMBATITIVE Family history of diabetes mellitus Sister Family history of diabetes mellitus Mother Family hx colonic polyps Past Surgical History Surgical History History of section SPINAL ANESTHESIA History of total replacement of right hip Right GISELLE: 10/19/18: SAB x 1 at L3 at [facility] Hx of oral surgery S/P epidural steroid injection Past Anesthesia History Other Patient: "Slow to wake" Father: combative with anesthesia History of PONV No Hx of PONV and No Hx of Motion Sickness Social History Smoking Status: Former smoker Do You Dip or Chew Tobacco: No Smoking End Date: Quit 08/2018 Hx Alcohol Use: No Hx Substance Use: No Review of Systems Patient denies chest pain, shortness of breath, cough, wheezing, palpitations. Physical Exam Vital Signs VITALS BP 110/74 P 86 TEMP 98.6 SP02 94%RA RESP 16 PHYSICAL Mildly decreased cervical extension Full TMJ range of motion. TMD 4 finger breaths Mallampati Score 2 Dentition: upper partial, missing lower molars Lungs: clear throughout to auscultation Cardiac: regular rate and rhythm, no murmurs noted Spine: normal Carotid arteries: negative bruit Extremities: no edema Testing Electrocardiogram Date: 10/09/18 + NSR @ (99) Chest X-Ray Date: 10/09/18 Findings: + NAD
--- NOTE | 2018-12-05 15:10 | PAT Medication Instructions ---
Medication Instructions Date of Service December 05, 2018 Home Medications acetaminophen [Tylenol 8 Hour] 1,300 mg PO Q12H PRN bupropion HCl [Wellbutrin XL] 100 mg PO TID diclofenac sodium [Voltaren] 2 g TOPICAL TID PRN furosemide 20 mg PO QAM gabapentin [Neurontin] 100 mg PO BID gabapentin [Neurontin] 300 mg PO HS lorazepam [Ativan] 0.5 mg PO UD PRN losartan 25 mg PO QAM metformin 500 mg PO TID metoprolol succinate 25 mg PO QAM multivitamin 1 tab PO QAM oxycodone 10 mg PO QID PRN polyethylene glycol 3350 [Miralax] 17 g PO DAILY PRN ranitidine HCl [Zantac] 150 mg PO BID aspirin [Aspir-81] 81 mg PO QAM ASK your surgeon for instructions Aleve STOP taking 24 hours before surgery diclofenac sodium [Voltaren] 2 g TOPICAL TID PRN DO NOT take the morning of surgery furosemide 20 mg PO QAM losartan 25 mg PO QAM metformin 500 mg PO TID multivitamin 1 tab PO QAM polyethylene glycol 3350 [Miralax] 17 g PO DAILY PRN ranitidine HCl [Zantac] 150 mg PO BID Take morning of surgery With a small sip of water, OTHERWISE NOTHING TO EAT OR DRINK AFTER MIDNIGHT: acetaminophen [Tylenol 8 Hour] 1,300 mg PO Q12H PRN (okay to take up to 4 hours prior to surgery if needed) bupropion HCl [Wellbutrin XL] 100 mg PO TID gabapentin [Neurontin] 100 mg PO BID lorazepam [Ativan] 0.5 mg PO UD PRN (if needed) metoprolol succinate 25 mg PO QAM oxycodone 10 mg PO QID PRN (okay to take up to 4 hours prior to surgery if neede d) aspirin [Aspir-81] 81 mg PO QAM Take evening before surgery acetaminophen [Tylenol 8 Hour] 1,300 mg PO Q12H PRN (if needed) bupropion HCl [Wellbutrin XL] 100 mg PO TID gabapentin [Neurontin] 100 mg PO BID gabapentin [Neurontin] 300 mg PO HS lorazepam [Ativan] 0.5 mg PO UD PRN (if needed) metformin 500 mg PO TID oxycodone 10 mg PO QID PRN polyethylene glycol 3350 [Miralax] 17 g PO DAILY PRN (if needed) ranitidine HCl [Zantac] 150 mg PO BID Other Notes If you have any questions please call us at [phone] or [phone] or [phone] or [phone]
[2018-12-05 15:40] LABS: Basophils # (auto) 0.01 K/uL (0-0.2); Basophils % (auto) 0.2 %; Eosinophils # (auto) 0.07 K/uL (0-0.5); Eosinophils % (auto) 1.2 %; Hematocrit (blood only) 36.7 % (37-47); Immature Granulocytes # (auto) 0.01 K/uL (0.00-0.02); Immature Granulocytes % (auto) 0.2 %; Lymphocytes # (auto) 2.53 K/uL (1.2-3.4); Lymphocytes % (auto) 42.6 %; Mean Corpuscular Hemoglobin 31.3 pg (25-34); Mean Corpuscular Hgb Conc 32.7 g/dL (32-36); Mean Corpuscular Volume 95.8 fL (80-100); Mean Platelet Volume 9.5 fL (7.4-10.4); Monocytes # (auto) 0.58 K/uL (0.11-0.59); Monocytes % (auto) 9.8 %; Neutrophils # (auto) 2.74 K/uL (1.4-6.5); Platelet Count 379 K/uL (130-400); RDW Coefficient of Variation 12.9 % (11.5-14.5); RDW Standard Deviation 44.9 fL (36.4-46.3); Red Blood Count 3.83 M/uL (4.2-5.4); White Blood Count 5.94 K/uL (4.8-10.8)
[2018-12-05 15:51] LABS: BUN Creatinine Ratio 17.4 (10-20); Calcium 9.3 mg/dl (8.5-10.1); Creatinine Clr Calc Pharmacy 73.4 ml/min; Est GFR (African American) 70.4; Est GFR (Non-African American) 60.8
[2018-12-05 15:54] LABS: Partial Thromboplastin Ratio 0.9; Partial Thromboplastin Time 24.1 Seconds (21.0-31.0); Prothrombin Time 9.8 Seconds (9.0-12.0)
--- NOTE | 2019-01-17 14:45 | History & Physical Report ---
Date of Service January 17, 2019 Assessment & Plan (1) Osteoarthritis of left hip: We will proceed with a left anterior total hip arthroplasty. Postoperatively she will be started on aspirin for DVT prophylaxis and kept overnight for postoperative medical management. She plans to use [facility] upon discharge. Present on Admission?: Yes History of Present Illness Chief Complaint: Primary osteoarthritis of the left hip Primary Care Provider: Leydi KhangTrenton Tyler Woodward is a pleasant 63-year-old female who underwent a right anterior total hip arthroplasty about 3 months ago. She is done extremely well with that. Unfortunately she is having a lot of pain in her left hip. X-rays and clinical examination have been diagnostic for primary osteoarthritis of the left hip. After failing conservative treatment, she has elected to proceed with a left anterior total hip arthroplasty. Allergies Allergy/AdvReac Type Severity Reaction Status Date / Time No Known Allergies Allergy Verified 11/30/18 11:06 Home Medications Home Medications Medication Instructions Recorded Confirmed Type acetaminophen [Tylenol 8 Hour] 1,300 mg PO Q12H PRN 10/05/18 11/30/18 History bupropion HCl [Wellbutrin XL] 100 mg PO TID 10/05/18 11/30/18 History diclofenac sodium [Voltaren] 2 g TOPICAL TID PRN 10/05/18 11/30/18 History furosemide 20 mg PO QAM 10/05/18 11/30/18 History gabapentin [Neurontin] 100 mg PO BID 10/05/18 11/30/18 History gabapentin [Neurontin] 300 mg PO HS 10/05/18 11/30/18 History lorazepam [Ativan] 0.5 mg PO UD PRN 10/05/18 11/30/18 History losartan 25 mg PO QAM 10/05/18 11/30/18 History metformin 500 mg PO TID 10/05/18 11/30/18 History metoprolol succinate 25 mg PO QAM 10/05/18 11/30/18 History multivitamin 1 tab PO QAM 10/05/18 11/30/18 History oxycodone 10 mg PO QID PRN 10/05/18 11/30/18 History polyethylene glycol 3350 [Miralax] 17 g PO DAILY PRN 10/05/18 11/30/18 History ranitidine HCl [Zantac] 150 mg PO BID 10/05/18 11/30/18 History aspirin [Aspir-81] 81 mg PO QAM 11/30/18 11/30/18 History Past Med/Surg History Medical History (Updated 01/17/19 @ 14:45 by Rosendo Solomon DO) Anxiety Chronic back pain Degenerative disc disease Depression Diabetes mellitus, type 2 NIDDM Fibromyalgia GERD (gastroesophageal reflux disease) controlled Hx of basal cell carcinoma Hypertension Neuropathy legs, feet, hands; 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 Obesity Osteoarthritis Post traumatic stress disorder Thyroid nodule under surveillance Surgical History (Updated 12/05/18 @ 15:19 by Reyna Clark) History of section SPINAL ANESTHESIA History of total replacement of right hip Right GISELLE: 10/19/18: SAB x 1 at L3 at [facility] Hx of oral surgery S/P epidural steroid injection Family History Father Family history of reaction to anesthesia COMBATITIVE Family history of diabetes mellitus Sister Family history of diabetes mellitus Mother Family hx colonic polyps Social History Preferred Language: Luxembourgish Communication Ability: Effective 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 Beliefs That Will Affect Care: None marital status: Single Current Living Situation: Alone Feels Safe at Home: Yes Safety Concerns: Feels Safe At This Time Smoking Status: Former smoker Do You Dip or Chew Tobacco: No ; Smoking End Date: Quit 08/2018 ; Second Hand Exposure: Yes (ON OCC) ; Hx Alcohol Use: No Hx Substance Use: No Review of Systems All systems reviewed & are unremarkable except as noted in HPI & below Physical Exam Constitutional: WD/WN, vitals as above Eyes: PERRL, conjunctivae normal, anicteric sclerae ENMT: external ear and nose normal, oropharynx normal Neck: trachea midline, no thyromegaly Respiratory: normal respiratory effort Cardiovascular: RRR, no murmur, no edema Gastrointestinal (Abdomen): normal bowel sounds, soft, nontender, no hepatosplenomegaly Musculoskeletal: Physical examination of the left hip reveals decreased range of motion with flexion, internal and external rotation. There is significant groin pain with forced internal rotation of the hip his leg lengths are essentially equal. Psychiatric: A+Ox3, euthymic affect Results & Data Diagnostic Findings Radiographs of the left hip and pelvis demonstrate advanced osteoarthritis with joint space narrowing osteophyte formation and eyjy-cp-mall articulation.
[2019-01-18] MEDS ORDERED: ACETAMINOPHEN 500 MG TAB PO SCH (06:00)
[2019-01-18] MEDS ORDERED: LR 60ML/HR IV SCH (06:00)
[2019-01-18] MEDS ORDERED: GABAPENTIN 600 MG DOSE PO SCH (06:00)
[2019-01-18] MEDS ORDERED: FAMOTIDINE 20 MG TAB PO SCH (06:00)
[2019-01-18] MEDS ORDERED: ROPIVACAINE 0.5% HCL/PF 150 MG, BUPIVACAINE 0.5% MPF 30 ML, EPINEPHrine 30MG/30ML (OR U... INFIL SCH (06:00)
[2019-01-18] MEDS ORDERED: CEFAZOLIN 2000MG 2,000 MG/15 ML SYR IV SCH (06:00)
[2019-01-18] MEDS ORDERED: LR 500ML BOLUS, THEN 15ML/HR IV SCH (06:00)
[2019-01-18] MEDS ORDERED: TRANEXAMIC ACID 1,000 MG **IV Pre-op IV SCH (06:00)
[2019-01-18] MEDS ORDERED: TRANEXAMIC ACID 1,000 MG **IV Intra-op IV SCH (06:30)
[2019-01-18] MEDS ORDERED: BUPIVACAINE 0.5 % 5 MG/1 ML PF 10ML VIAL ONE (06:40)
--- NOTE | 2019-01-18 06:57 | History & Physical Bridge Note ---
Date of Service January 18, 2019 History & Physical Bridge Note I have examined the patient, reviewed the History & Physical and in the interval since the performance of the History & Physical I have noted the following changes of clinical significance: no changes noted
[2019-01-18] MEDS ORDERED: ORTHO JOINT ANESTHETIC ONE (07:11)
[2019-01-18] MEDS ORDERED: fentaNYL citrate 100 MCG/2 ML VIAL ONE (07:22)
[2019-01-18] MEDS ORDERED: MIDAZOLAM HCL 1 MG/ML 2ML VIAL ONE ×3 (07:22→08:18)
[2019-01-18] MEDS ORDERED: ePHEDrine sulfate 50 MG/ML AMP IV PRN (07:28)
[2019-01-18] MEDS ORDERED: fentaNYL citrate 100 MCG/2 ML VIAL IV PRN (07:28)
[2019-01-18] MEDS ORDERED: ATROPINE SULFATE 0.1 MG/ML 10ML SYR IV PRN (07:28)
[2019-01-18] MEDS ORDERED: ONDANSETRON INJ 2 MG/ML 2 ML VIAL IV PRN ×2 (07:28→10:56)
[2019-01-18] MEDS ORDERED: LIDOCAINE HCL 2% 2 ML VIAL/AMP(20MG/ML) INFIL ONE (08:30)
[2019-01-18] MEDS ORDERED: PROPOFOL IV EMULSION 10 MG/ML 20 ML VIAL IV ONE (08:30)
[2019-01-18] MEDS ORDERED: ONDANSETRON INJ 2 MG/ML 2 ML VIAL ONE (08:31)
--- NOTE | 2019-01-18 09:42 | Operative Report ---
PG Post Operative Report Pre & Post Diagnosis Operation Date: 01/18/19 08:30 Pre-Op Diagnosis: LEFT HIP DEGENERATIVE JOINT DISEASE Post-Op Diagnosis: LEFT HIP DEGENERATIVE JOINT DISEASE I identified the patient and participated in the time-out.: Yes Procedure Operation Date: 01/18/19 08:30 Actual Procedures p Left Anterior Total Hip Arthroplasty(Left) - Rosendo Solomon DO Surgeon Rosendo Solomon DO Water Plant Operator Rosendo Douglas PAC Estimated Blood Loss 250 Findings Consistent with Post-Op Diagnosis Specimens Left femoral head Complications none Disposition Disposition: Recovery Room Indications Crissy is a pleasant 63-year-old female is been dealing with chronic bilateral hip pain. I did a right anterior total hip arthroplasty on her in the past. She has done extremely well with that. She has now elected to proceed with a left anterior total hip arthroplasty. Description of Procedure Implants used Biomet Taperloc total hip arthroplasty system with a size 11 standard offset Taperloc stem, a 50 mm G7 cup with a 25mm screw, an E1 polyethylene liner, a 36 mm ceramic head with a +0 neck. Patient arrived at the hospital for the above procedure. They were seen in the preoperative holding area and the operative extremity was identified and signed. They were given a spinal anesthetic. They were given a preoperative antibiotic and TXA. They were taken back To the operating room and laid on the table in the supine position. The leg was brought out through a Puristst leg positioner. The hip was then prepped and draped in sterile fashion. A timeout was done and the patient and the operative extremity was properly identified. An anterior approach was used. Dissection was taken down through the fascia and the tensor muscle belly was retracted laterally and the rectus was retracted med ially. The circumflex vessels were identified and ligated. The capsule was then incised and tagged for later repair. The femoral neck was then cut and the femoral head was removed. The acetabulum was exposed. Time was spent doing a complete circumferential labral release. Sequential reaming of the acetabulum up to a size 49 reamer was done. Final reamings were done under fluoroscopy to ensure appropriate version. A Biomet 50 mm G7 cup was then impacted into place. A single 25 mm screw was placed. The E1 polyethylene liner was then snapped into place. Surrounding soft tissues were then injected with 100 cc of an orthopedic pain control cocktail. The proximal femur was then exposed. Sequential broaching up to a size 11 broach was done. Off that broach a size 36 head with a +0 neck was trialed. The hip was reduced and fluoroscopic images showed anatomic alignment of the implants in acceptable length. The broach was removed. The final size 11 standard offset Taperloc stem was then impacted into place. A ceramic 36 mm head with a +0 neck was then impacted into place in the hip was reduced. Final fluoroscopic images showed anatomic reduction of the hip. The capsule was then closed with #1 Vicryl suture. A dilute betadyne lavage was then done for 3 minutes. The joint was then irrigated with normal saline solution. The fascia was closed with #1 PDS suture. Skin was closed with 2-0 Vicryl, allyson, and a Mago VAC dressing. The patient was then transferred to a hospital bed and taken to the post anesthesia care unit in stable condition. They tolerated the procedure well. I attest to the content of the Intraoperative Record and any orders documented therein. Any exceptions are noted below.
[2019-01-18] MEDS ORDERED: OXYCODONE HCL IR 5 MG TAB (IMMEDIATE RELEASE) PO PRN ×2 (10:24→10:56)
--- NOTE | 2019-01-18 10:27 | XRay Report ---
XR hip 1V LT w pelvis CLINICAL HISTORY: 63 years-old Female presenting with IN PACU - A/P PELVIS and LATERAL HIP . TECHNIQUE: Single frontal view of the pelvis and crosstable lateral view of the left hip were obtaine d. COMPARISON: 10/19/2018. FINDINGS: There has been interval postsurgical changes of total left hip arthroplasty. A wound VAC and skin sta ples are in place. Expected soft tissue emphysema. No malalignment. No periprosthetic fracture. The r emainder of the bony pelvis is intact. Postsurgical changes of total right hip arthroplasty again not ed. IMPRESSION: Expected postsurgical appearance status post total left hip arthroplasty. Electronically signed by: Demetrius Woods M.D. 01/18/2019 10:25 AM
--- NOTE | 2019-01-18 10:40 | Anesthesiology Progress Note ---
Date of Service January 18, 2019 Anesthesia Post Procedure Vital Signs Vital Signs: Temp Pulse Pulse Resp BP Pulse Ox 01/18/19 10:25 97.5 F L 83 14 124/61 100 01/18/19 10:15 82 13 112/66 99 01/18/19 10:05 97.5 F L 89 12 88/61 L 99 01/18/19 06:16 97.9 F 101 H 18 151/89 H 97 Transfer of Care Handoff Completed per policy Notes Mental Status: alert / awake / arousable and participated in evaluation Patient Amnestic to Procedure: Yes Nausea / Vomiting: adequately controlled Pain: adequately controlled Airway Patency, RR, SpO2: stable & adequate BP & HR: stable & adequate Hydration State: stable & adequate Neuraxial Anesthesia: was administered and sensory block is resolving Anesthetic Complications: no major complications apparent and Pt Satisfied with anesthetic care
[2019-01-18] MEDS ORDERED: METOCLOPRAMIDE HCL INJ 5 MG/ML 2 ML VIAL IV PRN (10:56)
[2019-01-18] MEDS ORDERED: HYDROmorphone INJ 0.5 MG/0.5 ML SYR IV PRN (10:56)
[2019-01-18] MEDS ORDERED: NALOXONE HCL 0.4 MG/1 ML VIAL/CARP IV PRN (10:56)
[2019-01-18] MEDS ORDERED: MAGNESIUM HYDROXIDE SUSP 30 ML UDC PO PRN (10:56)
[2019-01-18] MEDS ORDERED: BISACODYL 10 MG SUPP PR PRN (10:56)
[2019-01-18] MEDS ORDERED: PHARMACY GLYCEMIC MGMT CONSULT PRN (11:04)
[2019-01-18] MEDS ORDERED: GLUCOSE 40% GEL 15 GM TUBE PO PRN (11:15)
[2019-01-18] MEDS ORDERED: GLUCAGON FOR INJ 1 MG VIAL IM PRN (11:15)
[2019-01-18] MEDS ORDERED: CARBOHYDRATES FOR HYPOGLYCEMIA PO PRN (11:15)
[2019-01-18] MEDS ORDERED: GLUCOSE 10 TABS/TUBE PO PRN (11:15)
[2019-01-18] MEDS ORDERED: DEXTROSE 50% 50 ML SYRINGE IV PRN (11:15)
--- NOTE | 2019-01-18 11:22 | Fluoroscopy Report ---
FL hip LT 1V HISTORY: 63 years-old Female LEFT ANTERIOR HIP left hip total joint arthroplasty COMPARISON: Pelvis radiograph 12/05/2018 TECHNIQUE: 2 spot fluoroscopic images of the left hip were obtained utilizing 21.0 seconds fluoroscop y time FINDINGS: Left hip total joint arthroplasty demonstrates satisfactory alignment. Forceps overlie the proximal t o mid left femoral shaft. No acute fracture. Expected postsurgical soft tissue swelling with deep tis wilfredo air lateral to the left hip. Right hip total joint arthroplasty partially imaged. IMPRESSION: Satisfactory positioning of the left hip total joint arthroplasty. The above report was generated using voice recognition software. It may contain grammatical, syntax o r spelling errors. Electronically signed by: Olvin Mckenzie M.D. 01/18/2019 11:21 AM
--- NOTE | 2019-01-18 11:34 | Pharmacy Report ---
Glycemic Control Consultation - Date of Service January 18, 2019 - Scope Scope: Glycemic Pharmacist consulted by Rosendo WISE on 01/18 for glycemic control and to write orders per [facility] inpatient glycemic control protocol - Objective Weight: 108 kg Accuchecks BSG (last 24hrs): 01/18/19 01/18/19 06:19 10:18 POC Glucose 123 H 97 - Recent Pertinent Medications Outpatient Anti-diabetic Regimen: * metformin 500 mg TID * A1c = 6.1 % 10/20/18 Risk Factors for Insulin Resistance: * Steroids: topical dex in ortho mix * Recent Surgery: POD 0 * Diet: T2DM - Assessment & Plan Assessment & Plan: ASSESSMENT: * 63 year old female now s/p L hip arthroplasty. Underwent right total hip arthroplasty about 3 months ago * Pharmacy consulted to provide glycemic control postop - will utilize basal/bolus dosing postop op. Utilized stress of 2 for CF/CR based upon adjusted body weight. Patient was also glycemic consult on prior admission and parameters for novolog are similar. Patient with great BSG on prior admission PLAN FOR INPATIENT GLYCEMIC CONTROL: * Pt is maintained on oral antidiabetic agents as an outpatient * Oral agents are not recommended for inpatient use d/t drug interactions, changing PO intake, and difficulty titrating for acute hyper/hypoglycemia. ADA recommends re-initiating outpatient oral agents 1-2 days prior to discharge if/when appropriate if they were held on admission. * Will hold oral agents for admission and utilize SQ basal bolus insulin regimen which is the recommended regimen for inpatient glycemic control. * Will initiate weight based insulin dosing for insulin baldemar patient and titrate based on BSG trends. * Basal insulin * Lantus HS with scale -for BSG less than 180 - no insulin -for BSG 180 or greater - 7 units * Bolus insulin * NovoLog per scale ACHS or Q6hrs while NPO * Goal Range: Low 110 mg/dL - High 140 mg/dL * Correction Factor: 30 mg/dL/unit * Nutritional / Prandial insulin per carb ratio of 1 unit per 10 grams CHO consumed * Please note that the plan above was derived based on current level of insulin resistance and hospital stress. These recommendations are appropriate for inpatient admission only. Plan of care upon discharge will need to be reassessed to avoid potential outpatient hypo/hyperglycemia. Thank you.
[2019-01-18] MEDS ORDERED: SODIUM CHLORIDE 0.9% 1000ML 1,000 ML IV SCH (12:00)
[2019-01-18] MEDS: KETOROLAC 30 MG/ML VIAL IV SCH ×3 (12:14→23:31)
[2019-01-18] MEDS: INSULIN ASPART 100 UNITS/ML 3 ML PEN SC SCH ×3 (12:59→21:50)
[2019-01-18] MEDS: ACETAMINOPHEN 500 MG TAB PO SCH ×2 (13:52→21:50)
[2019-01-18] MEDS: buPROPion HCl 100 MG TABLET PO SCH ×2 (14:20→20:03)
[2019-01-18] MEDS: CEFAZOLIN 2000MG 2,000 MG/15 ML SYR IV SCH ×2 (15:22→23:31)
[2019-01-18] MEDS: DOCUSATE SODIUM 100 MG CAP PO SCH (20:00)
[2019-01-18] MEDS: ASPIRIN 81 MG ECTAB PO SCH (20:03)
[2019-01-18] MEDS ORDERED: LANTUS PER UNIT CHARGE SQ SCH (21:00)
[2019-01-18] MEDS ORDERED: SENNA 8.6 MG TAB PO SCH (21:00)
[2019-01-18] MEDS ORDERED: GABAPENTIN 300 MG CAP PO SCH (21:00)
[2019-01-18] MEDS ORDERED: GABAPENTIN 100 MG CAP PO SCH (21:00)
[2019-01-19] MEDS: ACETAMINOPHEN 500 MG TAB PO SCH (05:18)
[2019-01-19] MEDS: KETOROLAC 30 MG/ML VIAL IV SCH ×2 (05:18→11:36)
[2019-01-19 05:47] LABS: Hematocrit (blood only) 29.7 % (37-47); Hemoglobin 9.8 g/dL (12.0-16.0); Immature Granulocytes # (auto) 0.02 K/uL (0.00-0.02); Immature Granulocytes % (auto) 0.2 %; Lymphocytes # (auto) 1.87 K/uL (1.2-3.4); Mean Corpuscular Hemoglobin 30.7 pg (25-34); Mean Corpuscular Volume 93.1 fL (80-100); Mean Platelet Volume 9.3 fL (7.4-10.4); Monocytes # (auto) 0.96 K/uL (0.11-0.59); Monocytes % (auto) 9.2 %; Neutrophils # (auto) 7.56 K/uL (1.4-6.5); Neutrophils % (auto) 72.6 %; Platelet Count 226 K/uL (130-400); RDW Coefficient of Variation 13.2 % (11.5-14.5); RDW Standard Deviation 45.2 fL (36.4-46.3); Red Blood Count 3.19 M/uL (4.2-5.4); White Blood Count 10.41 K/uL (4.8-10.8)
[2019-01-19 06:15] LABS: BUN Creatinine Ratio 15.2 (10-20); Calcium 8.7 mg/dl (8.5-10.1); Creatinine Clr Calc Pharmacy 78.7 ml/min; Est GFR (African American) 74.9; Est GFR (Non-African American) 64.6
[2019-01-19] MEDS: DOCUSATE SODIUM 100 MG CAP PO SCH (08:42)
[2019-01-19] MEDS: ASPIRIN 81 MG ECTAB PO SCH (08:45)
[2019-01-19] MEDS: buPROPion HCl 100 MG TABLET PO SCH (08:47)
[2019-01-19] MEDS: INSULIN ASPART 100 UNITS/ML 3 ML PEN SC SCH (08:53)
[2019-01-19] MEDS ORDERED: FUROSEMIDE 20 MG TAB PO SCH (09:00)
[2019-01-19] MEDS ORDERED: METOPROLOL SUCC 25MG EXT REL TAB PO SCH (09:00)
[2019-01-19] MEDS ORDERED: MULTIVITAMIN TAB PO SCH (09:00)
[2019-01-19] MEDS ORDERED: LOSARTAN POTASSIUM 25 MG TAB PO SCH (09:00)
[2019-01-19] MEDS ORDERED: GABAPENTIN 100 MG CAP PO SCH (09:00)
--- NOTE | 2019-01-19 09:25 | Orthopedic Progress Note ---
Date of Service January 19, 2019 Assessment & Plan (1) Osteoarthritis of left hip: Overall she is doing very well. She is not having much pain in the left hip. She is on aspirin for DVT prophylaxis. She will be seen by physical therapy today for ambulation and range of motion exercises. She can be discharged home later today with [facility]. She will follow-up with orthopedics in 2 weeks. Present on Admission?: Yes Yamileth Woodward was seen and examined at bedside this morning. Overall she is doing very well. She is not having much pain in the left hip. She has been up and ambulating around the room. She has no complaints. Physical Exam Musculoskeletal: On physical examination of the left hip, the Mago VAC dressing is to suction. Her leg lengths are equal. She has active dorsiflexion and plantarflexion of her left ankle. Sensation is intact throughout. Results & Data Vital Signs (Past 12 Hours) Vital Signs Temp Pulse Pulse Resp BP Pulse Ox 01/19/19 08:43 106 H 130/81 01/19/19 07:31 36.6 C 100 H 16 117/65 95 01/19/19 04:03 36.7 C 99 H 18 119/76 96 01/19/19 00:08 36.7 C 102 H 16 123/78 96 Laboratory Results H & H 12/05/18 01/19/19 Range/Units 15:15 05:14 Hgb 12.0 9.8 L (12.0-16.0) g/dL Hct 36.7 L 29.7 L (37-47) % Coagulation 12/05/18 Range/Units 15:15 INR 1.0 (0.9-1.1) Diagnostic Findings Postoperative x-rays of the left hip show the prosthesis to be in anatomic alignment without any evidence of fracture, dislocation, or loosening. PG Care Time/CCT Total # of Minutes Spent Total Time Spent with Patient: Total time spent is greater than 50% in coordination of care (as documented) at patient's floor/unit and/or counseling patient:
--- NOTE | 2019-01-19 09:26 | Discharge Summary ---
Date of Service January 19, 2019 Admission HPI Per Admitting Provider Crissy is a pleasant 63-year-old female who underwent a right anterior total hip arthroplasty about 3 months ago. She is done extremely well with that. Unfortunately she is having a lot of pain in her left hip. X-rays and clinical examination have been diagnostic for primary osteoarthritis of the left hip. After failing conservative treatment, she has elected to proceed with a left anterior total hip arthroplasty. Principal Diagnosis Left total hip arthroplasty Discharge Data Allergies Allergy/AdvReac Type Severity Reaction Status Date / Time No Known Allergies Allergy Verified 01/18/19 06:22 Consultations 01/19/19 08:00 Consult Case Management - Discharge Planning Routine Procedures Performed Operation Date: 01/18/19 08:30 Actual Procedures p Left Anterior Total Hip Arthroplasty(Left) - Rosendo Solomon DO Ordered Studies 01/18/19 08:30 FL fluoroscopy <1hr Routine FL hip LT 1V Routine Hospital Course (1) Osteoarthritis of left hip: On January 18, 2019 Crissy arrived at [facility] and underwent a left anterior total hip arthroplasty without complication. She had a spinal anesthetic. Postoperatively she was started on aspirin for DVT prophylaxis and discharged to general orthopedic floors. Her hospital course was uneventful. On postop day #1 her H&H was stable and her pain was well controlled. She was able to ambulate well with physical therapy. She was then discharged home with [facility]. She will follow-up with orthopedics in 2 weeks. Total Time Total Time Spent Total Time Spent (In Minutes): 20 Discharge Plan Discharge Items Patient Disposition: Home - Home Health Services Reason For Visit: LEFT HIP DEGENERATIVE JOINT DISEASE Discharge Diagnosis: Left total hip arthroplasty Activity: As commented below Non-emergency contact: Surgeon Call non-emergency contact if: your wound has increased redness and your wound has increased drainage Follow-up/Referrals: Leydi Scott CRNP [Primary Care Provider] - Diet: Regular Addtl Attending Provider Instructions: Activity and Therapy Recommendations: * If you are using [facility] then therapy will be provided at your home until they feel you have accomplished all of your goals. * If you are using [facility] then Physical Therapy will be provided until they feel you are ready to start Outpatient Physical Therapy. * If you are not using home therapy then Outpatient Physical Therapy should start about 3-5 days from your day of surgery. Therapy will last about 6-10 weeks * You were shown a series of exercises in the hospital. Do these exercises three times each day including the exercises you were shown in physical therapy. * Get up and walk several times each day.~ For the first four weeks, try not to stand or walk for more than one hour at a time. If you do stand or walk for more than one hour, you will not hurt anything, but your leg will likely swell.~~ * As you feel comfortable, you may change from the walker or crutches to a cane and~then to independent walking. Medications: * Narcotic You will likely be sent home from the hospital with a prescription for the narcotic pain medication that worked best throughout your stay. * Aspirin Most patients will be required to take Aspirin 81mg twice a day for 6 weeks after surgery. This is obtained [id number] and a prescription is not necessary. * Other medications may be prescribed for specific circumstances. If you have any questions, please call the office at . * Resume previous home medications unless otherwise instructed TEDs/Elastic Stockings: The white elastic stockings help limit swelling and prevent blood clots from forming in your legs. The more you wear them, the more they work. Wear them for six weeks. Dressing Care: You will likely have a purple VAC dressing after surgery. This dressing will keep the incision dry and promote early healing. After about 7 days the batteries will wear out and the VAC will lose suction. Simply remove the dressing at that time and throw everything away, including the small suction machine. Then, you may leave the allyson open to air or cover them with a dry dressing so they do not rub on your pants. The allyson will be removed at your 2 week follow-up appointment. Showering: You may shower immediately with the purple VAC dressing. Let the shower spray hit your opposite side and slowly pat the plastic dry. Do not soak the dressing. After the dressing is removed you may shower normally with the allyson exposed. Let soapy water run over the allyson and pat them dry. Things To Watch For: * Drainage from the incision site that occurs more than one week after your surgery. * Increased redness at the incision site. * Fever above 102 degrees Fahrenheit. * Unusual chest pain or shortness of breath. * Call [facility] at with any of the above problems Follow-Up Visit: Follow-up with Dr. Solomon 2-3 weeks after your day of surgery. An appointment was probably scheduled when you signed-up for surgery in the office. If you have any questions call Office Instructions: More detailed instructions as well as Frequently Asked Questions were provided in a folder by our office when you signed-up for surgery. Please review these instructions when you get home. If you have any further questions or concerns, please feel free to call the office at [phone] Pending Studies at Discharge: No Stand-Alone Forms: My [facility] [address] Think Good Thoughts, Smoking Cessation Medications and DC Order Prescriptions: New ketorolac 10 mg tablet 10 mg PO Q8H 5 Days Qty: 15 RF: 0 Continued metformin 500 mg Tablet 500 mg PO TID RF: 0 furosemide 20 mg Tablet 20 mg PO QAM RF: 0 lorazepam [Ativan] 0.5 mg Tablet 0.5 mg PO UD PRN (Reason: Anxiety) RF: 0 losartan 25 mg Tablet 25 mg PO QAM RF: 0 gabapentin [Neurontin] 300 mg Capsule 300 mg PO HS RF: 0 gabapentin [Neurontin] 100 mg Capsule 100 mg PO BID RF: 0 metoprolol succinate 25 mg Tablet Extended Release 24 Hr 25 mg PO QAM RF: 0 acetaminophen [Tylenol 8 Hour] 650 mg Tablet Extended Release 1,300 mg PO Q12H PRN (Reason: Pain) RF: 0 oxycodone 10 mg Tablet 10 mg PO QID PRN (Reason: Pain) RF: 0 diclofenac sodium [Voltaren] 1 % Gel 2 g TOPICAL TID PRN (Reason: Pain) RF: 0 multivitamin Tablet 1 tab PO QAM RF: 0 polyethylene glycol 3350 [Miralax] 17 gram Powder In Packet 17 g PO DAILY PRN (Reason: Constipation) RF: 0 bupropion HCl 100 mg tablet 100 mg PO TID RF: 0 Changed aspirin [Aspir-81] 81 mg tablet,delayed release (DR/EC) 81 mg PO BID Qty: 0 RF: 0 Discharge Orders: Discharge Order (Routine); Ordered 01/19/19 Ordered By: Rosendo Solomon Admission Data Admit Date/Time: 01/18/19 10:08 Attending Provider: Rosendo Solomon Admit Provider: Rosendo Solomon Primary Care Provider: Leydi Scott
== END 2019-01-19 12:35 | disposition home or self-care (01) | DRG 470 ==
LOC: ASU 05:56 → 3E 10:08